=== PATIENT | male | born 1955 | race Caucasian/White ===

== ENCOUNTER 2016-12-01 09:02 | Day surgery (SDC) | payer BC, OTHER ==
[~2016-12-01 09:02] MED LIST: Lactated Ringers 1,000 ML IV SCH; Sodium Chloride 0.9% 10 ML Syringe FLUSH PRN; Sodium Chloride 0.9% 2.5 ML Syringe FLUSH PRN
--- NOTE | 2016-12-01 09:57 | PCM.PREANE ---
Preanesthetic Assessment - Anesthesia/Transfusion/Family Hx Anesthesia History: Prior Anesthesia Without Reaction Family History of Anesthesia Reaction: No Transfusion History: No Prior Transfusion(s) Intubation History: Unknown - Review of Systems General: No Symptoms Pulmonary: No Symptoms Cardiovascular: No Symptoms Neurological: No Symptoms Other: Reports: None - Physical Assessment Height: 1.85 m Weight: 79.832 kg ASA Class: 2 Mental Status: Alert & Oriented x3 Airway Class: Mallampati = 2 Dentition: Reports: Normal Dentition, [place](s) (multiple upper front) Thyro-Mental Finger Breadths: 3 Mouth Opening Finger Breadths: 2 ROM/Head Extension: Full Lungs: Clear to auscultation, Normal respiratory effort Cardiovascular: Regular Rate, Regular Rhythm - Allergies Allergies/Adverse Reactions: Allergies Allergy/AdvReac Type Severity Reaction Status Date / Time naproxen [From Aleve] Allergy Itching Verified 11/29/16 15:21 - Blood Blood Available: No - Anesthesia Plan Pre-Op Medication Ordered: None - Acknowledgements Anesthesia Type Planned: MAC Pt an Appropriate Candidate for the Planned Anesthesia: Yes Alternatives and Risks of Anesthesia Discussed w Pt/Guardian: Yes Pt/Guardian Understands and Agrees with Anesthesia Plan: Yes PreAnesthesia Questionnaire Other HEENT History: wears glasses Cardiovascular History: Reports: Blood clots/VTE/DVT Other Cardiovascular History: DVT left lower leg 10 years ago, has taken aspirin since Respiratory History: Reports: None Gastrointestinal History: Reports: None (cecum and descending colon), Colon polyp Genitourinary History: Reports: None Musculoskeletal History: Reports: Back pain, chronic, Fracture Other Musculoskeletal History: hx of fx right toe, right finger, left clavicle Neurological History: Reports: None Psychiatric History: Reports: None Endocrine/Metabolic History: Reports: None Hematologic History: Reports: None Immunologic History: Reports: None Oncologic (Cancer) History: Reports: None Dermatologic History: Reports: None - Past Surgical History Head Surgeries/Procedures: Reports: None HEENT Surgical History: Reports: Tonsillectomy Cardiovascular Surgical History: Reports: None Respiratory Surgical History: Reports: None GI Surgical History: Reports: Colonoscopy () Male Surgical History: Reports: None Endocrine Surgical History: Reports: None Neurological Surgical History: Reports: None Musculoskeletal Surgical History: Reports: Shoulder surgery, Other (see below) Other Musculoskeletal Surgeries/Procedures:: ACL repair left knee, tendon repair right shoulder Oncologic Surgical History: Reports: None Dermatological Surgical History: Reports: None - SUBSTANCE USE Smoking Status *Q: Current Every Day Smoker (< 1 ppd) Tobacco Use Within Last Twelve Months: Cigarettes Recreational Drug Use History: No - HOME MEDS Home Medications: Home Meds Aspirin [Adult Low Dose Aspirin EC] 81 mg PO DAILY 11/29/16 [History] buPROPion HCl [Wellbutrin SR] 150 mg PO DAILY 11/29/16 [History] - CURRENT (IN HOUSE) MEDS Current Meds: Current Medications Lactated Ringer's (Ringers, Lactated) 1,000 mls @ 125 mls/hr IV ASDIRECTED GUY Sodium Chloride (Saline Flush) 10 ml FLUSH ASDIRECTED PRN PRN Reason: Keep Vein Open Sodium Chloride (Saline Flush) 2.5 ml FLUSH ASDIRECTED PRN PRN Reason: Keep Vein Open
[2016-12-01] MEDS ORDERED: Lidocaine 2% 5 ML SDV ONE (10:47)
[2016-12-01] MEDS ORDERED: Propofol 200 MG/20 ML SDV ONE ×3 (10:48→11:55)
[2016-12-01] MEDS ORDERED: Midazolam 1 MG/ML 2 ML SDV ONE (10:48)
[2016-12-01] MEDS ORDERED: fentaNYL 100 MCG/2 ML SDV ONE (10:48)
--- NOTE | 2016-12-01 12:40 | PCM.OPNOTE ---
- General Post-Op/Procedure Note Date of Surgery/Procedure: 12/01/16 Operative Procedure(s): Screening colonoscopy Findings: 1 descending sigmoid polyp @ 70 cm, 1 sigmoid colon polyp @ 20, 6 polyps between 20 and 10 cm in the rectum Pre Op Diagnosis: Colon polyps Post-Op Diagnosis: same Anesthesia Technique: MAC Condition: Good Free Text/Narrative:: Intake & Output 11/30/16 12/01/16 12/01/16 22:59 06:59 14:59 Intake Total 1849 Balance 185
--- NOTE | 2016-12-01 12:56 | PCM.POSTAN ---
POST ANESTHESIA ASSESSMENT - MENTAL STATUS Mental Status: alert, oriented - RESPIRATORY Respiratory Status: respiratory rate WNL, airway patent, O2 saturation stable - CARDIOVASCULAR CV Status: pulse rate WNL, blood pressure stable - GASTROINTESTINAL GI Status: no symptoms - POST OP HYDRATION Hydration Status: adequate & stable - OBSERVATIONS Free Text/Narrative:: no anesthesia problems
[2016-12-01 12:59] VITALS: BP 108/70
--- NOTE | 2016-12-02 00:46 | OR ---
SURGEON: SHOBHA BOLANOS MD DATE OF PROCEDURE: 12/01/2016 PREOPERATIVE DIAGNOSIS: History of colon polyps. POSTOPERATIVE DIAGNOSIS: Multiple colon polyps. PROCEDURE PERFORMED: Colonoscopy with biopsy. INSTRUMENT USED: Olympus colonoscope. ANESTHESIA: MAC. EXTENT OF EXAM: To the cecum. PREPARATION: Good. LIMITATIONS: None. INDICATIONS: The patient is a 61-year-old male, who underwent a screening colonoscopy 5 years ago. 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 It was recommended that the patient undergo another screening colonoscopy in 5 years. The patient is currently not having any symptoms and presents for his repeat colonoscopy. We discussed the procedure as well as expected perioperative course. We discussed the risks, including bleeding, infection, or damage to surrounding structures, including perforation. The patient verbalized understanding and wished to proceed. PROCEDURE IN DETAIL: The patient was brought to the endoscopy suite and placed in a left lateral decubitus position. A time-out was completed verifying the patient's name, age, date of , allergies, and procedure to be performed. Monitored anesthesia care was induced and continuous oxygen was provided via nasal cannula throughout the procedure. After adequate sedation was achieved, a digital rectal exam was performed. This examination was within normal limits. A well lubricated colonoscope was then inserted into the rectum and advanced under direct visualization to the level of cecum. The cecum was then identified by both visual and anatomic landmarks. A photograph was taken of the cecal cap as well as with retroflexing of the scope within the cecum. The scope was then carefully withdrawn while examining the color, texture, anatomy, and integrity of the mucosa from the cecum to the anal canal. Approximately 1 cm polyp was noted at 70 cm within the descending colon, this was removed in piecemeal fashion via a cold biopsy forceps. Another polyp was noted within the sigmoid colon at around 20 cm, this was removed in a piecemeal fashion as well. Once I got into the rectum, multiple polyps were noted. The largest of these measured 0.5 to 1 cm in size. All the polyps were removed completely in piecemeal fashion and labeled as rectal polyp number 1 through 6. Once the polypectomies were completed, the scope was left in the rectum and retroflexed to allow visualization of the anal canal opening, this appeared normal and a photograph was taken. The scope was then straightened out and removed from the patient. The cecum to anus time was over 30 minutes given the multiple polypectomies. The patient was transferred to the recovery room in stable condition. ENDOSCOPIC DIAGNOSES: One descending colon polyp at 70 cm, one sigmoid polyp at 20 cm, 6 rectal polyps. RECOMMENDATIONS: Follow up in clinic in 2 weeks. ADAM RICHARD /[id number] MTDD
== END 2016-12-01 13:10 | disposition home or self-care (01) ==
LOC: MW.SDS 09:02
PROVIDERS: ATTEND Surgery
DX: Z12.11 Encounter for screening for malignant neoplasm of colon (principal); D12.4 Benign neoplasm of descending colon; D12.5 Benign neoplasm of sigmoid colon; D12.8 Benign neoplasm of rectum; F17.210 Nicotine dependence, cigarettes, uncomplicated; Z88.8 Allergy status to other drugs, medicaments and biological substances; Z86.010 Personal history of colon polyps; Z79.82 Long term (current) use of aspirin; Z98.890 Other specified postprocedural states
CPT/HCPCS: 45380; 88305; J2250; J3010; J7120; J2704

== ENCOUNTER 2020-05-21 09:43 | Day surgery (SDC) | payer OTHER ==
[~2020-05-21 09:43] MED LIST changes: +Sodium Chloride 0.9% 10 ML SDV IV PRN
--- NOTE | 2020-05-21 10:24 | PCM.PREANE ---
Preanesthetic Assessment - Anesthesia/Transfusion/Family Hx Anesthesia History: Prior Anesthesia Without Reaction Family History of Anesthesia Reaction: No Transfusion History: No Prior Transfusion(s) Intubation History: Unknown - Review of Systems General: No Symptoms Pulmonary: No Symptoms Cardiovascular: No Symptoms Gastrointestinal: No Symptoms Neurological: No Symptoms Other: Reports: None - Physical Assessment NPO Status Date: 05/20/20 Height: 6 ft 1 in Weight: 78.925 kg ASA Class: 2 Mental Status: Alert & Oriented x3 Airway Class: Mallampati = 2 Dentition: Reports: Normal Dentition ROM/Head Extension: Full Lungs: Clear to Auscultation, Normal Respiratory Effort Cardiovascular: Regular Rate, Regular Rhythm - Allergies Allergies/Adverse Reactions: Allergies Allergy/AdvReac Type Severity Reaction Status Date / Time naproxen [From Aleve] Allergy Itching Verified 05/18/20 10:36 - Blood Blood Available: No - Anesthesia Plan Pre-Op Medication Ordered: None - Acknowledgements Anesthesia Type Planned: General Anesthesia Pt an Appropriate Candidate for the Planned Anesthesia: Yes Alternatives and Risks of Anesthesia Discussed w Pt/Guardian: Yes Pt/Guardian Understands and Agrees with Anesthesia Plan: Yes Additional Comments: pmh: former smoker, RAD from COPD PLAN: tiva PreAnesthesia Questionnaire HEENT History: Reports: Other (See Below) Other HEENT History: wears glasses Cardiovascular History: Reports: Blood Clots/VTE/DVT Other Cardiovascular History: DVT left lower leg 15 years ago Respiratory History: Reports: COPD Gastrointestinal History: Reports: Colon Polyp Genitourinary History: Reports: None Musculoskeletal History: Reports: Fracture Other Musculoskeletal History: hx of fx right toe, right finger, left clavicle Neurological History: Reports: None Psychiatric History: Reports: Anxiety, Depression Endocrine/Metabolic History: Reports: None Hematologic History: Reports: None Immunologic History: Reports: None Oncologic (Cancer) History: Reports: None Dermatologic History: Reports: None - Infectious Disease History Infectious Disease History: Reports: None - Past Surgical History Head Surgeries/Procedures: Reports: None HEENT Surgical History: Reports: Tonsillectomy Cardiovascular Surgical History: Reports: None Respiratory Surgical History: Reports: None GI Surgical History: Reports: Colonoscopy Male Surgical History: Reports: Vasectomy Endocrine Surgical History: Reports: None Neurological Surgical History: Reports: None Musculoskeletal Surgical History: Reports: Shoulder Surgery, Other (See Below) Other Musculoskeletal Surgeries/Procedures:: ACL repair left knee, tendon repa ir right shoulder Oncologic Surgical History: Reports: None Dermatological Surgical History: Reports: None - SUBSTANCE USE Tobacco Use Status *Q: Former Tobacco User Tobacco Use Within Last Twelve Months: No Recreational Drug Use History: No - HOME MEDS Home Medications: Home Meds buPROPion HCL [Wellbutrin SR] 150 mg PO DAILY 11/29/16 [History] Albuterol Sulfate [Albuterol Sulfate Hfa] 2 puff INH ASDIRECTED PRN 05/18/20 [History] Anoro Ellipta 1 inhalation INH DAILY 05/18/20 [History] Sildenafil Citrate 5 tab PO ASDIRECTED PRN 05/18/20 [History] - CURRENT (IN HOUSE) MEDS Current Meds: Current Medications Lactated Ringer's (Ringers, Lactated) 1,000 mls @ 125 mls/hr IV ASDIRECTED GUY Sodium Chloride (Saline Flush) 10 ml FLUSH ASDIRECTED PRN PRN Reason: Keep Vein Open Sodium Chloride (Saline Flush) 2.5 ml FLUSH ASDIRECTED PRN PRN Reason: Keep Vein Open Sodium Chloride (Saline Flush) 10 ml FLUSH ASDIRECTED PRN PRN Reason: Keep Vein Open Sodium Chloride (Saline Flush) 2.5 ml FLUSH ASDIRECTED PRN PRN Reason: Keep Vein Open Sodium Chloride (Normal Saline) 10 ml IV ASDIRECTED PRN PRN Reason: IV Use
[2020-05-21] MEDS ORDERED: Propofol 200 MG/20 ML SDV ONE ×5 (11:45→12:30)
[2020-05-21] MEDS ORDERED: Midazolam 1 MG/ML 2 ML SDV ONE (11:55)
[2020-05-21] MEDS ORDERED: fentaNYL 100 MCG/2 ML SDV ONE (11:55)
--- NOTE | 2020-05-21 12:41 | PCM.OPNOTE ---
- General Post-Op/Procedure Note Date of Surgery/Procedure: 05/21/20 Operative Procedure(s): Diagnostic colonoscopy with polypectomy Findings: Hyperplastic polyps of sigmoid colon, diverticulosis of sigmoid colon, transverse colon polyp x 6, descending colon polyp x 2, sigmoid colon polyp x 3 Pre Op Diagnosis: History of colon polyps Post-Op Diagnosis: Hyperplastic polyps of sigmoid colon, diverticulosis of sigmoid colon, transverse colon polyp x 6, descending colon polyp x 2, sigmoid colon polyp x 3 Anesthesia Technique: MAC Primary Surgeon: Karen Chauhan Condition: Good
--- NOTE | 2020-05-21 13:28 | OR ---
SURGEON: KAREN CHAUHAN MD DATE OF PROCEDURE: 05/21/2020 PREOPERATIVE DIAGNOSIS: History of colon polyps. POSTOPERATIVE DIAGNOSES: 1. Diverticulosis. 2. Hyperplastic polyps. 3. Transverse colon polyps x6. 4. Descending colon polyps x2. 5. Sigmoid colon polyps x3. PROCEDURE PERFORMED: Diagnostic colonoscopy with polypectomy. PRIMARY SURGEON: Karen Chauhan MD. ANESTHESIA: MAC. INSTRUMENT USED: Olympus colonoscope. EXTENT OF EXAM: To the cecum. PREPARATION: Good. LIMITATIONS: None. INDICATIONS FOR EXAMINATION: The patient is a 64-year-old male who has a family history of colon cancer as well as a personal history of multiple colon polyps. He is due for a repeat colonoscopy. I explained the procedure, expected perioperative course, and risks. He verbalized understanding and wishes to proceed. PROCEDURE IN DETAIL: The patient was brought to the endoscopy suite and placed in the left lateral decubitus position. A time-out was completed verifying the patient's name, age, date of , allergies, and procedure to be performed. Monitored anesthesia care was induced and continuous oxygen was provided via nasal cannula throughout the procedure. After adequate sedation was achieved, a digital rectal exam was performed. This exam was within normal limits. A well-lubricated colonoscope was inserted in the rectum and advanced under direct visualization to the level of the cecum. The cecum was identified by both visual and anatomic landmarks. A photograph was taken of the cecal cap. However, I was unable to retroflex the scope within the cecum due to looping of the scope more proximally. The scope was then fully withdrawn while examining the color, texture, anatomy, and integrity of the mucosa from the cecum to the anal canal. Throughout the transverse colon, the patient had scattered sessile polyps. These were all removed in piecemeal fashion using a cold biopsy forceps. In the descending colon, the patient had 2 polyps that were similar in nature. These were both removed using cold biopsy forceps. In the sigmoid colon, the patient had 2 proximal sigmoid colon polyps which were removed using a cold biopsy forceps. The third polyp was located in the distal sigmoid colon and was removed using a hot snare. The patient was noted to have diverticulosis throughout the sigmoid colon as well as hyperplastic polyps in the distal sigmoid. The scope was then brought into the rectum and retroflexed to allow visualization of the anal canal opening. This appeared normal and a photograph was taken. The scope was then straightened out and fully withdrawn. The cecum to anus time was 41 minute. The patient tolerated the procedure well and was transferred to the PACU in stable condition. ENDOSCOPIC DIAGNOSES: 1. Diverticulosis. 2. Hyperplastic polyps. 3. Transverse colon polyps x6. 4. Descending colon polyps x2. 5. Sigmoid colon polyps x3. RECOMMENDATIONS: Followup in clinic in 2 weeks. ADAM RICHARD /[id number]
--- NOTE | 2020-05-21 14:13 | PCM.POSTAN ---
POST ANESTHESIA ASSESSMENT - MENTAL STATUS Mental Status: Alert, Oriented - VITAL SIGNS Vital Signs: Last Vital Signs Temp 97.4 F 05/21/20 12:40 Pulse 71 05/21/20 12:56 Resp 16 05/21/20 12:56 BP 142/83 H 05/21/20 12:56 Pulse Ox 97 05/21/20 12:56 - RESPIRATORY Respiratory Status: Respiratory Rate WNL, Airway Patent, O2 Saturation Stable - CARDIOVASCULAR CV Status: Pulse Rate WNL, Blood Pressure Stable - GASTROINTESTINAL GI Status: No Symptoms - POST OP HYDRATION Hydration Status: Adequate & Stable
--- NOTE | 2020-05-21 14:14 | PCM48HPAN ---
Post Anesthesia Note - EVALUATION WITHIN 48HRS OF ANESTHETIC Vital Signs in Normal Range: Yes Patient Participated in Evaluation: Yes Respiratory Function Stable: Yes Airway Patent: Yes Cardiovascular Function Stable: Yes Hydration Status Stable: Yes Pain Control Satisfactory: Yes Nausea and Vomiting Control Satisfactory: Yes Mental Status Recovered: Yes Vital Signs: Last Vital Signs Temp 97.4 F 05/21/20 12:40 Pulse 71 05/21/20 12:56 Resp 16 05/21/20 12:56 BP 142/83 H 05/21/20 12:56 Pulse Ox 97 05/21/20 12:56
[2020-05-21 14:33] VITALS: BP 114/68; PULSE 68
== END 2020-05-21 13:45 | disposition home or self-care (01) ==
LOC: MW.SDS 09:43
PROVIDERS: ATTEND Surgery
DX: Z12.11 Encounter for screening for malignant neoplasm of colon (principal); D12.3 Benign neoplasm of transverse colon; D12.4 Benign neoplasm of descending colon; D12.5 Benign neoplasm of sigmoid colon; K57.30 Diverticulosis of large intestine without perforation or abscess without bleeding; J44.9 Chronic obstructive pulmonary disease, unspecified; Z79.899 Other long term (current) drug therapy; Z87.891 Personal history of nicotine dependence; Z80.0 Family history of malignant neoplasm of digestive organs; Z88.8 Allergy status to other drugs, medicaments and biological substances
CPT/HCPCS: 45380; J2001; J2250; J2704; J3010; J7120

== ENCOUNTER 2021-05-11 11:07 | Day surgery (SDC) | payer OTHER ==
--- NOTE | 2021-05-11 11:13 | PCM.PREANE ---
Preanesthetic Assessment - Anesthesia/Transfusion/Family Hx Anesthesia History: Prior Anesthesia Without Reaction Transfusion History: No Prior Transfusion(s) Intubation History: Unknown - Review of Systems General: No Symptoms Pulmonary: No Symptoms Cardiovascular: No Symptoms Gastrointestinal: No Symptoms Neurological: No Symptoms Other: Reports: None - Physical Assessment NPO Status Date: 05/11/21 NPO Status Time: 00:00 Height: 6 ft 1 in Weight: 192 lb ASA Class: 3 Mental Status: Alert & Oriented x3 Airway Class: Mallampati = 2 Dentition: Reports: Normal Dentition, [place](s) Thyro-Mental Finger Breadths: 3 Mouth Opening Finger Breadths: 3 ROM/Head Extension: Full Lungs: Clear to Auscultation, Normal Respiratory Effort Cardiovascular: Regular Rate, Regular Rhythm - Allergies Allergies/Adverse Reactions: Allergies Allergy/AdvReac Type Severity Reaction Status Date / Time naproxen [From Aleve] Allergy Itching Verified 05/05/21 14:43 - Acknowledgements Anesthesia Type Planned: General Anesthesia Pt an Appropriate Candidate for the Planned Anesthesia: Yes Alternatives and Risks of Anesthesia Discussed w Pt/Guardian: Yes Pt/Guardian Understands and Agrees with Anesthesia Plan: Yes PreAnesthesia Questionnaire HEENT History: Reports: Other (See Below) Other HEENT History: wears glasses Cardiovascular History: Reports: Blood Clots/VTE/DVT Other Cardiovascular History: DVT left lower leg 15 years ago Respiratory History: Reports: COPD Other Respiratory History: uses daily inhaler Gastrointestinal History: Reports: Colon Polyp, Diverticulosis Genitourinary History: Reports: None Musculoskeletal History: Reports: Back Pain, Chronic, Fracture Other Musculoskeletal History: hx of fx right toe, right finger, left clavicle Neurological History: Reports: None Psychiatric History: Reports: None Endocrine/Metabolic History: Reports: Hypothyroidism Hematologic History: Reports: None Immunologic History: Reports: None Oncologic (Cancer) History: Reports: None Dermatologic History: Reports: None - Infectious Disease History Infectious Disease History: Reports: None - Past Surgical History Head Surgeries/Procedures: Reports: None HEENT Surgical History: Reports: Tonsillectomy Cardiovascular Surgical History: Reports: None Respiratory Surgical History: Reports: None GI Surgical History: Reports: Colonoscopy Male Surgical History: Reports: None Endocrine Surgical History: Reports: None Neurological Surgical History: Reports: None Musculoskeletal Surgical History: Reports: Shoulder Surgery, Other (See Below) Other Musculoskeletal Surgeries/Procedures:: ACL repair left knee, 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 Oncologic Surgical History: Reports: None Dermatological Surgical History: Reports: None - SUBSTANCE USE Tobacco Use Status *Q: Former Tobacco User Recreational Drug Use History: No - HOME MEDS Home Medications: Home Meds buPROPion HCL [Wellbutrin SR] 150 mg PO DAILY 11/29/16 [History] Albuterol Sulfate [Albuterol Sulfate Hfa] 2 puff INH ASDIRECTED PRN 05/18/20 [History] Anoro Ellipta 1 inhalation INH DAILY 05/18/20 [History] Sildenafil Citrate 100 mg PO ASDIRECTED PRN 05/18/20 [History] Levothyroxine 25 mcg PO QAM 05/05/21 [History] - CURRENT (IN HOUSE) MEDS Current Meds: Current Medications Lactated Ringer's (Ringers, Lactated) 1,000 mls @ 125 mls/hr IV ASDIRECTED GUY Sodium Chloride (Sodium Chloride 0.9% 10 Ml Syringe) 10 ml FLUSH ASDIRECTED PRN PRN Reason: Keep Vein Open Sodium Chloride (Sodium Chloride 0.9% 2.5 Ml Syringe) 2.5 ml FLUSH ASDIRECTED PRN PRN Reason: Keep Vein Open Sodium Chloride (Sodium Chloride 0.9% 10 Ml Syringe) 10 ml FLUSH ASDIRECTED PRN PRN Reason: Keep Vein Open Sodium Chloride (Sodium Chloride 0.9% 2.5 Ml Syringe) 2.5 ml FLUSH ASDIRECTED PRN PRN Reason: Keep Vein Open Sodium Chloride (Sodium Chloride 0.9% 10 Ml Sdv) 10 ml IV ASDIRECTED PRN PRN Reason: IV Use
[2021-05-11] MEDS ORDERED: Propofol 200 MG/20 ML SDV ONE (13:39)
--- NOTE | 2021-05-11 14:16 | PCM.POSTAN ---
POST ANESTHESIA ASSESSMENT - MENTAL STATUS Mental Status: Alert, Oriented - VITAL SIGNS Vital Signs: Last Vital Signs Temp 35.7 C L 05/11/21 11:15 Pulse 82 05/11/21 11:15 Resp 16 05/11/21 11:15 BP 157/94 H 05/11/21 11:15 Pulse Ox 98 05/11/21 11:15 - RESPIRATORY Respiratory Status: Respiratory Rate WNL, Airway Patent, O2 Saturation Stable - CARDIOVASCULAR CV Status: Pulse Rate WNL, Blood Pressure Stable - GASTROINTESTINAL GI Status: No Symptoms - POST OP HYDRATION Hydration Status: Adequate & Stable
--- NOTE | 2021-05-11 14:17 | PCM48HPAN ---
Post Anesthesia Note - EVALUATION WITHIN 48HRS OF ANESTHETIC Vital Signs in Normal Range: Yes Patient Participated in Evaluation: Yes Respiratory Function Stable: Yes Airway Patent: Yes Cardiovascular Function Stable: Yes Hydration Status Stable: Yes Pain Control Satisfactory: Yes Nausea and Vomiting Control Satisfactory: Yes Mental Status Recovered: Yes Vital Signs: Last Vital Signs Temp 36.2 C 05/11/21 14:05 Pulse 76 05/11/21 14:15 Resp 12 05/11/21 14:15 BP 122/81 05/11/21 14:15 Pulse Ox 98 05/11/21 14:15
[2021-05-11 14:27] VITALS: BP 108/70; PULSE 72
--- NOTE | 2021-05-11 18:18 | PCM.OPNOTE ---
- General Post-Op/Procedure Note Date of Surgery/Procedure: 05/11/21 Operative Procedure(s): Colonoscopy Findings: 2 ascending colon polyps, 2 cecal polyps, 2 descending colon polyps, diverticulosis, hyperplastic sigmoid colon polyps Pre Op Diagnosis: History of colon polyps Post-Op Diagnosis: 2 ascending colon polyps, 2 cecal polyps, 2 descending colon polyps, diverticulosis, hyperplastic sigmoid colon polyps Anesthesia Technique: MAC Primary Surgeon: Karen Chauhan Condition: Stable Free Text/Narrative:: Intake & Output 05/11/21 05/11/21 05/11/21 06:59 14:59 22:59 Intake Total 1075 Balance 1075
--- NOTE | 2021-05-11 22:48 | OR ---
SURGEON: KAREN CHAUHAN MD DATE OF PROCEDURE: 05/11/2021 PREOPERATIVE DIAGNOSIS: History of multiple colon polyps. POSTOPERATIVE DIAGNOSES: 1. Cecal polyp x2. 2. Ascending colon polyp x2. 3. Descending colon polyp x2. 4. Diverticulosis. 5. Hyperplastic sigmoid colon polyps. PROCEDURE PERFORMED: Diagnostic colonoscopy with polypectomy. PRIMARY SURGEON: Karen Chauhan MD ANESTHESIA: MAC. INSTRUMENT USED: Olympus colonoscope. EXTENT OF EXAM: To the cecum. PREPARATION: Good. LIMITATIONS: None. INDICATIONS FOR EXAMINATION: The patient is a 65-year-old male who last year underwent a colonoscopy. He was found to have multiple polyps throughout the colon. Given the amount of polyps that I removed and given this was a special case, the decision was made to proceed one year later with a repeat colonoscopy to ensure that all polyps were removed and there was no further aggressive polyp growth. The patient and I discussed the procedure, expected perioperative course, and the risks. He verbalized understanding and wishes to proceed. PROCEDURE IN DETAIL: The patient was brought in to the endoscopy suite and placed in a left lateral decubitus position. A time-out was completed verifying the patient's name, age, date of , allergies, and procedure to be performed. Monitored anesthesia care was induced and continuous oxygen was provided via face mask throughout the procedure. After adequate sedation was achieved, a digital rectal exam was performed. This exam was within normal limits. A well-lubricated colonoscope was inserted into the rectum and advanced under direct visualization to the level of the cecum. The cecum was identified by both visual and anatomic landmarks. A photograph was taken of the cecal cap; however, I was unable to retroflex the scope within the cecum due to looping of the scope more proximally. The scope was then fully withdrawn while examining the color, texture, anatomy, and integrity of the mucosa from the cecum to the anal canal. The patient was found to have two polyps which were small and sessile within the cecum. These were removed in piecemeal fashion using a cold biopsy forceps. The patient had two further similar-appearing polyps in the ascending colon. They were removed in similar fashion. In the descending colon, the patient had two further sessile polyps. They were removed in piecemeal fashion using a cold biopsy forceps. The patient was noted to have diverticulosis within the sigmoid colon. In the very distal sigmoid colon and the proximal rectum, the patient had multiple hyperplastic-appearing polyps. A photograph of this was taken. The scope was brought into the rectum and retroflexed to allow visualization of the anal canal opening. This appeared normal and a photograph was taken. The scope was then straightened out and fully withdrawn. The cecum to anus time was 21 minutes. The patient tolerated the procedure well and was transferred to the PACU in stable condition. ENDOSCOPIC DIAGNOSES: 1. Cecal polyp x2. 2. Ascending colon polyp x2. 3. Descending colon polyp x2. 4. Diverticulosis. 5. Hyperplastic sigmoid colon polyps. RECOMMENDATION: Follow up in clinic in two weeks. ADAM RICHARD /[id number]
== END 2021-05-11 14:38 | disposition home or self-care (01) ==
LOC: MW.SDS 11:07
PROVIDERS: ATTEND Surgery
DX: Z12.11 Encounter for screening for malignant neoplasm of colon (principal); D12.0 Benign neoplasm of cecum; D12.4 Benign neoplasm of descending colon; K57.30 Diverticulosis of large intestine without perforation or abscess without bleeding; J44.9 Chronic obstructive pulmonary disease, unspecified; Z87.891 Personal history of nicotine dependence; Z88.8 Allergy status to other drugs, medicaments and biological substances; Z79.899 Other long term (current) drug therapy; Z98.890 Other specified postprocedural states
CPT/HCPCS: 45380; 88305; J2704; J7120; 00811

== ENCOUNTER 2022-03-04 09:57 | Emergency (ER) | payer MEDICARE, OTHER ==
[2022-03-04] MEDS ORDERED: Sodium Chloride 0.9% 2.5 ML Syringe FLUSH PRN (11:54)
[2022-03-04] MEDS ORDERED: Sodium Chloride 0.9% 10 ML Syringe FLUSH PRN (11:54)
[2022-03-04] MEDS ORDERED: Albuterol/Ipratropium 3.0-0.5 MG/3 ML Neb Soln NEB ONE (11:55)
[2022-03-04] MEDS ORDERED: methylPREDNISolone Sodium Succinate 125 MG/2 ML SDV IVPUSH ONE (11:55)
[2022-03-04 13:15] LABS: CARBON DIOXIDE,CO2 27.1 mmol/L (21.0-32.0); POTASSIUM,K 4.5 mmol/L (3.5-5.1)
[2022-03-04] MEDS ORDERED: Albuterol 0.083% 2.5 MG/3 ML Neb Soln NEB ONE (14:17)
[2022-03-04 14:54] VITALS: BP 123/87; PULSE 96
== END 2022-03-04 14:53 | disposition home or self-care (01) ==
LOC: MW.ED 09:57
DX: J44.1 Chronic obstructive pulmonary disease with (acute) exacerbation (principal); E03.9 Hypothyroidism, unspecified; Z88.8 Allergy status to other drugs, medicaments and biological substances; Z79.899 Other long term (current) drug therapy; Z87.891 Personal history of nicotine dependence; Z20.822 Contact with and (suspected) exposure to COVID-19
CPT/HCPCS: 36415; 71045; 80053; 83880; 84484; 85025; 85379; 85610; 93005; 96374; 99285; J2930; J3490; U0002; 93010; 99284; J7620-GY

== ENCOUNTER 2024-04-30 09:01 | Day surgery (SDC) | payer MEDICARE ==
[~2024-04-30 09:01] MED LIST changes: -Lactated Ringers 1,000 ML IV SCH; -Sodium Chloride 0.9% 10 ML SDV IV PRN; +Sodium Chloride 0.9% 20 ML SDV IV PRN
[2024-04-30] MEDS ORDERED: Ondansetron 4 MG/2 ML SDV IVPUSH ONE (09:02)
[2024-04-30] MEDS: Lactated Ringers 1,000 ML IV SCH (09:35)
[2024-04-30] MEDS ORDERED: propofoL 50 ML ONE (10:00)
[2024-04-30] MEDS ORDERED: Ketamine HCL/NACL, ISO-OSM 50 MG/5 ML Syringe ONE (10:09)
[2024-04-30] MEDS ORDERED: fentaNYL 100 MCG/2 ML SDV ONE (10:09)
[2024-04-30] MEDS: fentaNYL 50 MCG/ML SDV IVPUSH ONE (10:23)
[2024-04-30] MEDS ORDERED: ePHEDrine 50 MG/ML SDV ONE (10:44)
[2024-04-30 12:08] VITALS: BP 120/84; PULSE 67
== END 2024-04-30 11:40 | disposition home or self-care (01) ==
LOC: MW.SDS 09:01
PROVIDERS: ATTEND Surgery
DX: Z12.11 Encounter for screening for malignant neoplasm of colon (principal); D12.2 Benign neoplasm of ascending colon; D12.3 Benign neoplasm of transverse colon; D12.8 Benign neoplasm of rectum; K57.30 Diverticulosis of large intestine without perforation or abscess without bleeding; Z86.0100 Personal history of colon polyps, unspecified; J44.9 Chronic obstructive pulmonary disease, unspecified; E03.9 Hypothyroidism, unspecified; Z79.890 Hormone replacement therapy; Z79.899 Other long term (current) drug therapy
CPT/HCPCS: 45380; J2405; J2704; J3010; J7120; 00811; 88305; J3490